=== PATIENT | male | born 2000 | race Caucasian/White ===

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

== ENCOUNTER 2023-01-20 15:06 | Emergency (ER) | payer OTHER, BC ==
[~2023-01-20] VITALS: Ht 185.4 cm; Wt 83.9 kg
[~2023-01-20 15:06] MED LIST changes: +CLINDAMYCIN HC300 MG PO
[2023-01-20] MEDS ORDERED: CLINDAMYCIN HC300 MG PO (15:35)
== END 2023-01-20 15:45 | disposition home or self-care (01) ==
LOC: ED 15:06
DX: K04.7 Periapical abscess without sinus (principal); Z88.0 Allergy status to penicillin; Z88.1 Allergy status to other antibiotic agents